=== PATIENT | female | born 1980 | race Hispanic/Latino ===

== ENCOUNTER 2021-06-28 08:46 | Day surgery (SDC) | payer OTHER ==
[2021-06-28 08:48] LABS: Urine Appearance CLEAR (Clear); Urine Bilirubin NEGATIVE (Negative); Urine Blood NEGATIVE (Negative); Urine Color YELLOW (Yellow); Urine Glucose NEGATIVE (Negative); Urine Protein NEGATIVE (Negative); Urine Specific Gravity 1.015 (1.005-1.030); Urine Urobilinogen 0.2 mg/dL (0.2-1.0); Urine pH 7.5 (5.0-7.0)
[2021-06-28 08:49] LABS: Urine Microscopic Reflex NO UMIC
[2021-06-28 08:50] LABS: Specific Gravity 1.015 (1.005-1.030)
--- NOTE | 2021-06-28 09:04 | RAD REPORT ---
EXAM DESCRIPTION: RAD - Chest Pa And Lat (2 Views) - 06/28/2021 8:44 am CLINICAL HISTORY: preop Chest pain. COMPARISON: No comparisons FINDINGS: The lungs are clear. The heart is normal in size. No displaced fractures. IMPRESSION: No acute or concerning finding suspected.
[2021-06-28] MEDS ORDERED: NS 0.9% VIAL 40 ML ONE (09:09)
[2021-06-28] MEDS ORDERED: LIDOCAINE 1% W/EPI 1:100,000 MDV 20 ML VIAL ONE (09:09)
[2021-06-28] MEDS ORDERED: CEFAZOLIN SODIUM 1 GM/VIAL ONE ×2 (09:09→14:16)
[2021-06-28] MEDS ORDERED: Mastisol Adhesive Liq ONE (09:09)
[2021-06-28] MEDS ORDERED: GENTAMICIN SULF 80 MG/2ML INJ ONE (09:09)
[2021-06-28] MEDS ORDERED: Ringers Lactate 1,000 ML IV ONE ×3 (09:10→09:21)
[2021-06-28] MEDS ORDERED: BACITRACIN 50000 UNIT VIAL ONE (09:10)
[2021-06-28] MEDS ORDERED: MIDAZOLAM HCL 2 MG/2 ML INJ ONE (09:18)
[2021-06-28] MEDS ORDERED: LIDOCAINE 2% MPF 5 ML VIAL ONE (09:18)
[2021-06-28] MEDS ORDERED: ROCURONIUM 50 MG/5 ML VIAL IV ONE (09:18)
[2021-06-28] MEDS ORDERED: dexAMETHasone 10 MG/ML VIAL ONE (09:18)
[2021-06-28] MEDS ORDERED: FENTANYL CITR 250 MCG/5 ML ONE (09:18)
[2021-06-28] MEDS ORDERED: propofoL 200 MG/20 ML VIAL IV ONE (09:18)
[2021-06-28] MEDS ORDERED: VECURONIUM 10 MG/VIAL IV ONE (09:20)
[2021-06-28] MEDS ORDERED: ONDANSETRON 4 MG/2 ML VIAL ONE (09:20)
[2021-06-28] MEDS ORDERED: KETOROLAC 30 MG/ML INJ ONE ×2 (09:21→10:48)
[2021-06-28] MEDS ORDERED: CEFAZOLIN/SWI 1gm 1 GM/10 ML SYR ONE (09:21)
[2021-06-28] MEDS ORDERED: SCOPOLAMINE HYDROBROMIDE PATCH TD ONE ×2 (10:05→10:26)
[2021-06-28] MEDS ORDERED: Phenylephrine HCl 10 MG/ML 1 ML VIAL ONE (12:13)
[2021-06-28] MEDS ORDERED: EPHEDRINE SULF 50 MG/ML VIAL ONE (13:34)
[2021-06-28] MEDS ORDERED: NS 0.9% VIAL 10 ML ONE ×2 (14:17→14:33)
[2021-06-28] MEDS ORDERED: GLYCOPYRROLATE 0.2 MG/ML SYR ONE (14:20)
[2021-06-28] MEDS ORDERED: MORPHINE 10 MG/ML VIAL ONE (14:32)
[2021-06-28] MEDS ORDERED: NEOSTIGMINE 1 MG/ML -5 ML ONE (14:32)
[2021-06-28 14:54] VITALS: O2SAT 100
[2021-06-28] MEDS ORDERED: CODEINE 30MG/APAP 300MG TAB ONE (15:52)
[2021-06-28 16:41] VITALS: BP 107/66; TEMP 98.1
--- NOTE | 2021-06-28 16:54 | EKG ---
Test Date: 2021-06-28 Test Time: 07:33:48 Special Effects Makeup Artist: EULALIO MEASUREMENT RESULTS: Intervals: Rate: 65 HI: 148 QRSD: 80 QT: 416 QTc: 432 [place]: P: 90 HI: 148 QRS: 71 T: 45 INTERPRETIVE STATEMENTS: Normal sinus rhythm Nonspecific T wave abnormality Abnormal ECG No previous ECG available for comparison Electronically Signed On 06-28-21 16:53:26 CDT by Duy Garcia
--- NOTE | 2021-06-29 01:37 | OP ---
Surgeon: Quinn Gunn MD Preoperative Diagnosis: Breast descent. Postoperative Diagnosis: Breast descent. Procedure Performed: Breast lift. Anesthesia: General. Procedure In Detail: After satisfactory induction of general anesthesia, the chest was prepped with DuraPrep, dry sterile drapes were applied in usual manner. The 45 template was used to outline the r ight and left areola and then a transverse curvilinear incision was made. Then the transverse incisi on made and a curvilinear incision. Then area was de-epithelialized with dermabrader and tenotomy sc issors. Then transverse incision was made and flaps elevated towards the sternum, clavicle, anterior axillary. Then inferior incision was made. Deep tissue was formed with a cone with 2-0 PDS suture. After excess breast tissue lateral was removed with electrocautery. Straps were then elevated at t he base of the breast at the 12 o'clock, 1:30 and 3 o'clock position. The straps were then woven in and out of pec major, then back to breast, back to pec major, back to breast, tied themselves with 2- 0 PDS suture. This was done with the 12 o'clock and 1:30 strap. 3 o'clock strap was sewn over the s ternum at 3 o'clock position with 2-0 Ethibond suture. Wound was simply stapled shut. Left side was done in mirror-image manner. Dog ears were marked out. The patient was returned supine. Dog ears were excised laterally. The wound was irrigated with antibiotic solution and then electrocautery use d for hemostasis. The wound was closed with 3-0 Vicryl subcutaneous, then 3-0 PDS running subcuticul ar tied from medial lateral, then lateral to medial, tied in the vertical meridian of the breast. Julio Cesar th wounds were done and then patient was sat up. Site for new nipple-areolar complex was marked out. A 45 mm template was used and tissue cored out and sewn with interrupted 4-0 PDS followed by 4-0 PD S running subcuticular. Dressings of tincture of benzoin, Steri-Strips, followed by Esmarch, fluffs and Suleiman wrap. The patient tolerated procedure well returned to Recovery. SOLEDAD/MODL Voice ID: [id number] Report ID: [id number]
== END 2021-06-28 16:59 | disposition home or self-care (01) ==
LOC: OR 08:46
PROVIDERS: ATTEND Specialist
PROC: 0HSV0ZZ Reposition Bilateral Breast, Open Approach (ICD-10-PCS; principal; 2021-06-28 09:00)
DX: N64.81 Ptosis of breast (principal)
CPT/HCPCS: 93005; 81025; 88305; 81003; 71046; 19316; J2704; J2370; J1580; J2250; J3010; J1100; J2710; J0690 ×3; J7120 ×3; J2405